=== PATIENT | female | born 1965 | race Caucasian/White ===

== ENCOUNTER → 2020-11-25 | Outpatient (CLI) | payer MEDICARE ==
[~2020-11-25] MED LIST: TORADOL 10 MG T10 MG PO
== END ==
LOC: RAD 14:29
DX: R06.02 Shortness of breath (principal)
CPT/HCPCS: 71046

== ENCOUNTER → 2020-12-29 | Outpatient (CLI) | payer MEDICARE | LOC: KOH-I 15:31 | DX: M89.9 Disorder of bone, unspecified (principal); E07.9 Disorder of thyroid, unspecified | CPT/HCPCS: 71250 ==

== ENCOUNTER → 2021-01-30 | Outpatient (CLI) | payer MEDICARE | LOC: EXRD 14:03 | DX: E04.1 Nontoxic single thyroid nodule (principal) | CPT/HCPCS: 76536 ==

== ENCOUNTER 2021-02-12 14:32 | Emergency (ER) | payer MEDICARE ==
[2021-02-12] MEDS ORDERED: TORADOL 10 MG T10 MG PO (15:50)
== END 2021-02-12 16:07 | disposition home or self-care (01) ==
LOC: ER1 14:32
DX: S93.602A Unspecified sprain of left foot, initial encounter (principal); E11.9 Type 2 diabetes mellitus without complications; Z88.0 Allergy status to penicillin; W20.8XXA Other cause of strike by thrown, projected or falling object, initial encounter
CPT/HCPCS: 73630; 96372; 99283; J1885

== ENCOUNTER 2021-08-03 11:50 | Emergency (ER) | payer MEDICARE ==
[2021-08-03] MEDS ORDERED: IBU600 MG PO (13:44)
== END 2021-08-03 13:55 | disposition home or self-care (01) ==
LOC: ER1 11:50
DX: S52.592A Other fractures of lower end of left radius, initial encounter for closed fracture (principal); E11.9 Type 2 diabetes mellitus without complications; I10 Essential (primary) hypertension; W19.XXXA Unspecified fall, initial encounter; Y92.009 Unspecified place in unspecified non-institutional (private) residence as the place of occurrence of the external cause
CPT/HCPCS: 29125; 73110; 99283

== ENCOUNTER → 2021-08-21 | Outpatient (CLI) | payer MEDICARE ==
[~2021-08-21] MED LIST changes: +IBU600 MG PO
== END ==
LOC: KOH-I 08:14
DX: M51.36 Other intervertebral disc degeneration, lumbar region (principal)
CPT/HCPCS: 72100; 73560; 73610; 73630